=== PATIENT | female | born 1965 ===

== ENCOUNTER 2017-09-11 13:05 | Observation (INO) | payer BC ==
[2017-09-11] MEDS ORDERED: Albuterol-Ipratrop 3 mg / 0.5 (3 ml) UD INH STA ×3 (13:34→13:36)
--- NOTE | 2017-09-11 13:40 | ED PDOC ---
HPI: General Adult Time Seen by Provider: 09/11/17 13:30 Chief Complaint (Nursing): Chest Pain Chief Complaint (Provider): chest pain and coughing History Per: Patient History/Exam Limitations: no limitations Onset/Duration Of Symptoms: Days (4) Have you had recent travel within the past 21 days to any of the following countries: [place], [place], [place] or [place]?: No Current Symptoms Are (Timing): Still Present Severity: Severe Pain Scale Rating Of: 10 Recently: Treated By A Physician (seen by PCP ~ 2 weeks ago) Additional History Per: Patient Additional Complaint(s): pt p/w + 4 days onset of persistent/worsening left sided chest pain/underneath her left breast; pt states movement/coughing worsens the pain; pt states pain at most is 10/10; pt states no radiation of pain down her arms/up her neck; pt states she has been coughing, dry/non-productive over the last 2 weeks, and had seen her PCP, Dr Mora, and was dx with allergic reaction (started on steroids/ nasal spray/inhaler), but without improvement; pt states no fever, + chills, no sweats, + mild sob, no palpitations, no abd pain, no n/v, no numbness/tingling, no urinary/bowel changes, no rashes, no bleeding, no fall/trauma/sick contact, no travel clerk denied other complaints pt is here for further eval. PCP: Dr MORA PMHx: asthma, allergies Family hx: NO acute [place] with immediate family members < 50years old Past Medical History Reviewed: Historical Data, Nursing Documentation, Vital Signs Vital Signs: Last Vital Signs Temp 97.6 F 09/11/17 19:07 Pulse 94 H 09/11/17 19:07 Resp 17 09/11/17 19:07 BP 90/56 L 09/11/17 19:07 Pulse Ox 97 09/11/17 19:07 - Medical History PMH: Anemia, Asthma Denies: HIV, Chronic Kidney Disease - Surgical History Surgical History: - Family History Family History: States: No Known Family Hx - Living Arrangements Living Arrangements: Alone - Social History Current smoker - smoking cessation education provided: No Ex-Smoker (has not smoked in the last 12 months): No Alcohol: None Drugs: Denies - Home Medications Home Medications: Ambulatory Orders Medication Instructions Recorded Albuterol 0.083% [Albuterol 0.083% 2.5 mg INH PRN PRN 09/11/17 Inhal Leilani (2.5 mg/3 ml) UD] Guaifen/Dextromethorphan/PE 1 tab PO DAILY 09/11/17 [Mucinex Fast-Max Congest-Cough] Loratadine/Pseudoephedrine 1 tab PO Q12 09/11/17 [Claritin-D 24 Hour Tablet] - Allergies Allergies/Adverse Reactions: Allergies Allergy/AdvReac Type Severity Reaction Status Date / Time aspirin Allergy RASH Verified 09/11/17 13:11 Review of Systems ROS Statement: Except As Marked, All Systems Reviewed And Found Negative Constitutional: Negative for: Fever, Chills, Sweats, Weakness, Malaise Eyes: Negative for: Pain ENT: Negative for: Ear Pain, Nose Pain, Nose Congestion, Mouth Swelling Cardiovascular: Positive for: Chest Pain Respiratory: Positive for: Cough, Shortness of Breath, SOB with Exertion, Pleuritic Pain Gastrointestinal: Negative for: Nausea, Vomiting, Abdominal Pain, Constipation Genitourinary Female: Negative for: Dysuria, Frequency, Incontinence, Hematuria , Vaginal Discharge Musculoskeletal: Negative for: Neck Pain, Back Pain Skin: Negative for: Rash Neurological: Negative for: Weakness, Altered Mental Status, Headache, Dizziness Psych: Negative for: Anxiety, Depression, Psychosis Physical Exam - Reviewed Nursing Documentation Reviewed: Yes Vital Signs Reviewed: Yes (WNL) - Physical Exam Comments: General: alert/awake, GCS = 15, oriented x 3, resting in bed, uncomfortable, cooperative, interactive; moderate distress due to pain; during exam + cried when left chest wall was palpated Head: NC/AT EYE: PERRLA, EOMI, sclera anicteric, no nystagmus, no photophobia; visual field intact b/l Facial: WNL Oral: uvula/tongue are midline, no exudate/lesions, no drooling/stridor, no dysphonia; intact dentitions NECK: intact ROM, no midline tenderness, no nuchal rigidity, no meningeal signs ; no step off; no crepitus noted Chest: + diffuse b/l wheezing noted, no rales/rhonchi noted, no tachypenia, no accessory muscle use noted; + severe tenderness over the left anterior/lateral chest wall region, NO crepitus, no gross deformities noted Cardiac: +S1, +S2, no m/r/r, no tachycardia Abdominal: +BS, soft/nd/nt, well nourished patient; no masses/rebound/guarding/ rigidity; no baxter's sign, no mcburney's point tenderness Extremities: intact ROM, strength 5/5 grossly intact in all limbs, neurovasc intact b/l; + ambulatory; reflex +2/2; no pitting edema noted b/l BACK: no step off, no midline tenderness, NO crepitus, no gross deformities noted; Intact ROM; no CVAT b/l SKIN: cap refill < 1 sec, no ulcerations, no petechiae, no rashes/lesions NEURO: CNII-XII WNL, no facial asymmetries, no slurr speech, oriented x 3 NIH stroke scale ~ 0 Psych: normal insight, normal affect; follows command with ease - Laboratory Results Result Diagrams: 09/11/17 13:49 09/11/17 13:49 - ECG ECG: Positive for: Interpreted By Me, Viewed By Me Interpretation Of ECG: NSR at 80 bpm, normal axis, no ectopy, no st-t changes, NORMAL EKG; unchanged compare with old ekg 11/2014 O2 Sat by Pulse Oximetry: 98 Pulse Ox Interpretation: Normal - Radiology X-Ray: Viewed By Me, Read By Radiologist - Progress ED Course And Treament: Time: 1503 CXR HISTORY: COMPARISON: 12/08/2014 TECHNIQUE: Chest PA and lateral FINDINGS: LINES AND TUBES: None. LUNG AND PLEURA: The lungs are well inflated and clear. No pleural effusion or pneumothorax. HEART AND MEDIASTINUM: The heart is not enlarged. The hilar and mediastinal contours are within normal limits. SKELETAL STRUCTURES: The bony structures are within normal limits for the patient's age. VISUALIZED UPPER ABDOMEN: Normal. OTHER FINDINGS: None. IMPRESSION: No active pulmonary disease. 3:50p - pt continues to have left chest pain, no improvement from the medications pt is awaiting lab results/CT results Time: 17:46 PROCEDURE: CT Chest with contrast (Pulmonary Angiogram) HISTORY: Left chest pain COMPARISON: Plain radiographs performed earlier the same day. TECHNIQUE: Axial computed tomography images were obtained of the chest in the pulmonary arterial phase of enhancement. Coronal and sagittal reformatted images were created and reviewed. Intravenous contrast dose: 65 mL Visipaque 320 Radiation dose: Total exam DLP = 326.26 mGy-cm. This CT exam was performed using one or more of the following dose reduction techniques: Automated exposure control, adjustment of the mA and/or kV according to patient size, and/or use of iterative reconstruction technique. FINDINGS: PULMONARY ARTERIES: There are no filling defects in the pulmonary arteries to suggest acute pulmonary embolism. AORTA: No acute findings. No thoracic aortic aneurysm. LUNGS: The lungs are clear. There is dependent atelectasis in the lower lobe and subsegmental atelectasis in the lingula. No nodule, mass or pulmonary consolidation. There are no endobronchial lesions. PLEURAL SPACES: No effusion or pneumothorax. HEART: The heart is normal in size. No significant pericardial effusion. LYMPH NODES: No lymphadenopathy. BONES, CHEST WALL: Unremarkable. No fracture or destructive lesion within normal limits for the patient's age. OTHER FINDINGS: There are no calcified gallstones. Both adrenal glands are normal. IMPRESSION: No CT evidence for acute pulmonary embolism. No evidence of consolidation, pleural effusion or pneumothorax. 6:20pm - pt is doing well currently pt states her chest pain is currently at 5-6/10; pt is much more comfortable due to pt's persistent chest pain, left sided, will recommend patient for admission/observation pt is made aware of her medical results agrees with admission/observation paging Dr Murcia, Medical service attending director occupational, no reply, will continue to page 7:05pm - Dr Murcia contacted, made aware, agrees with admission/observation Re-evaluation Time: 16:04 Condition: Unchanged - Physician Consult Information Time Consulting Physican Contacted: 19:05 Physician Contacted: Vincent Murcia Nebulizer Treatments/Peak Flow - Duonebs Number of Bronchodilator Doses given?: 3 - Steroid Treatment Steroid: IV - Clinical Response Comment: CTA b/l, no w/r/r Medical Decision Making Medical Decision Making: Impression: left chest wall pain, + coughing i have consider all the differential diagnosis regarding pt's chief medical complaints/clinical findings, including but are not limited to: left chest wall pain, + coughing; unlikely ACS, unlikely PE A/P: left chest wall pain, + coughing - xray - labs - treatments - steroids - supportive care - observe/reevaluation Disposition - Clinical Impression Clinical Impression: Chest pain with low risk for cardiac etiology, Shortness of breath - Patient ED Disposition Is Patient to be Admitted: Yes Discussed With : Vincent Murcia Doctor Will See Patient In The: Hospital Counseled Patient/Family Regarding: Studies Performed, Diagnosis, Need For Followup, Rx Given - Disposition Disposition Time: 18:33 Condition: STABLE
[2017-09-11] MEDS ORDERED: Morphine 4 MG/ML VIAL ONE (13:48)
[2017-09-11] MEDS ORDERED: Albuterol-Ipratrop 3 mg / 0.5 (3 ml) UD ONE (13:49)
[2017-09-11 13:57] LABS: BASO % 0.5 % (0.0-2.0); EOS # 1.4 K/uL (0.0-0.7); EOS % 15.9 % (0.0-4.0); HEMOGLOBIN 13.5 g/dL (12.0-16.0); LYMPH # 2.2 K/uL (1.0-4.3); LYMPH % 25.6 % (20.0-40.0); MEAN CELL VOLUME 83.1 fl (81.0-99.0); MEAN CORPUSCULAR HEMOGLOBIN 28.4 pg (27.0-31.0); MEAN CORPUSCULAR HGB CONC 34.1 g/dL (33.0-37.0); MEAN PLATELET VOLUME 8.8 fl (7.2-11.7); MONO # 0.5 K/uL (0.0-0.8); MONO % 5.9 % (0.0-10.0); NEUT # 4.5 K/uL (1.8-7.0); NEUT % 52.1 % (50.0-75.0); NRBC % 0.1 % (0.0-0.0); RBC 4.75 Mil/uL (3.80-5.20); WHITE BLOOD COUNT 8.6 K/uL (4.8-10.8)
[2017-09-11 14:01] LABS: ALB/GLOB RATIO 1.1 (1.0-2.1); ALBUMIN 3.9 g/dL (3.5-5.0); ALT/SGPT 32 U/L (9-52); AST/SGOT 26 U/L (14-36); BLOOD UREA NITROGEN 12 mg/dl (7-17); GFR AFRICAN-AMERICAN > 60; GFR NON-AFRICAN AMERICAN > 60; LIPASE 74 U/L (23-300)
[2017-09-11 14:13] LABS: B-TYPE NATRIURETIC PEPTIDE 19.7 pg/ml (0-450)
[2017-09-11 14:57] LABS: SQUAMOUS EPITHIAL 10 /hpf (0-5); URINE BACTERIA RARE (<OCC); URINE BILIRUBIN NEGATIVE (NEGATIVE); URINE BLOOD NEGATIVE (NEGATIVE); URINE CLARITY CLOUDY (Clear); URINE COLOR YELLOW (YELLOW); URINE GLUCOSE (UA) NEG (Normal); URINE LEUKOCYTE ESTERASE SMALL Leu/uL (Negative); URINE PROTEIN 30 mg/dL (NEGATIVE)
--- NOTE | 2017-09-11 15:05 | RAD ---
HISTORY: COMPARISON: 12/08/2014 TECHNIQUE: Chest PA and lateral FINDINGS: LINES AND TUBES: None. LUNG AND PLEURA: The lungs are well inflated and clear. No pleural effusion or pneumothorax. HEART AND MEDIASTINUM: The heart is not enlarged. The hilar and mediastinal contours are within normal limits. SKELETAL STRUCTURES: The bony structures are within normal limits for the patient's age. VISUALIZED UPPER ABDOMEN: Normal. OTHER FINDINGS: None. IMPRESSION: No active pulmonary disease.
[2017-09-11] MEDS ORDERED: HYDROmorphone 0.5 mg/0.5 ml ISec IVP ONE (16:02)
[2017-09-11] MEDS ORDERED: Iodixanol 320 MG/ML 100 ML BOTTLE IV ONE (16:48)
[2017-09-11] MEDS ORDERED: Sodium Chloride 0.9% 50 ML IV ONE (16:48)
--- NOTE | 2017-09-11 17:48 | CT ---
PROCEDURE: CT Chest with contrast (Pulmonary Angiogram) HISTORY: Left chest pain COMPARISON: Plain radiographs performed earlier the same day. TECHNIQUE: Axial computed tomography images were obtained of the chest in the pulmonary arterial phase of enhancement. Coronal and sagittal reformatted images were created and reviewed. Intravenous contrast dose: 65 mL Visipaque 320 Radiation dose: Total exam DLP = 326.26 mGy-cm. This CT exam was performed using one or more of the following dose reduction techniques: Automated exposure control, adjustment of the mA and/or kV according to patient size, and/or use of iterative reconstruction technique. FINDINGS: PULMONARY ARTERIES: There are no filling defects in the pulmonary arteries to suggest acute pulmonary embolism. AORTA: No acute findings. No thoracic aortic aneurysm. LUNGS: The lungs are clear. There is dependent atelectasis in the lower lobe and subsegmental atelectasis in the lingula. No nodule, mass or pulmonary consolidation. There are no endobronchial lesions. PLEURAL SPACES: No effusion or pneumothorax. HEART: The heart is normal in size. No significant pericardial effusion. LYMPH NODES: No lymphadenopathy. BONES, CHEST WALL: Unremarkable. No fracture or destructive lesion within normal limits for the patient's age. OTHER FINDINGS: There are no calcified gallstones. Both adrenal glands are normal. IMPRESSION: No CT evidence for acute pulmonary embolism. No evidence of consolidation, pleural effusion or pneumothorax.
[2017-09-11] MEDS ORDERED: HYDROmorphone 0.5 mg/0.5 ml ISec ONE (19:00)
[2017-09-12 05:38] LABS: HEMOGLOBIN 12.1 g/dL (12.0-16.0); MEAN CORPUSCULAR HEMOGLOBIN 27.5 pg (27.0-31.0); MEAN CORPUSCULAR HGB CONC 32.3 g/dL (33.0-37.0); RBC 4.39 Mil/uL (3.80-5.20); RED CELL DISTRIBUTION WIDTH 15.3 % (11.5-14.5); WHITE BLOOD COUNT 8.3 K/uL (4.8-10.8)
[2017-09-12 05:45] LABS: BLOOD UREA NITROGEN 13 mg/dl (7-17); CALCIUM 8.7 mg/dL (8.4-10.2); GFR AFRICAN-AMERICAN > 60; GFR NON-AFRICAN AMERICAN > 60; HDL CHOLESTEROL 46 MG/DL (30-70)
[2017-09-12 05:55] LABS: LDL CHOLESTEROL 80 mg/dL (0-129)
[2017-09-12] MEDS ORDERED: Pneumococcal 23-Valent Vaccine IM ONE (06:30)
--- NOTE | 2017-09-12 08:37 | CARD ---
APPROVED REPORT EKG Measurement Heart [id number] <Conclusion> Normal sinus rhythm Normal ECG
--- NOTE | 2017-09-12 08:42 | CARD ---
APPROVED REPORT EKG Measurement Heart [id number] [place] 130P8 [id number] <Conclusion> Normal sinus rhythm Normal ECG
[2017-09-12] MEDS: Enoxaparin 40 mg Syringe SC SCH (09:38)
[2017-09-12] MEDS: Albuterol-Ipratrop 3 mg / 0.5 (3 ml) UD INH SCH ×5 (09:42→18:59)
[2017-09-12] MEDS ORDERED: Albuterol-Ipratrop 3 mg / 0.5 (3 ml) UD INH SCH (12:00)
--- NOTE | 2017-09-12 12:19 | CARD ---
APPROVED REPORT EXAM: Two-dimensional and M-mode echocardiogram with Doppler and color Doppler. Other Information Quality : AverageRhythm : NSR INDICATION Chest Pain 2D DIMENSIONS IVSd1.03 (0.7-1.1cm)LVDd4.33 (3.9-5.9cm) LVOT Diameter1.80 (1.8-2.4cm)PWd1.01 (0.7-1.1cm) IVSs1.27 (0.8-1.2cm)LVDs2.60 (2.5-4.0cm) FS (%) 40.0 %PWs1.15 (0.8-1.2cm) M-Mode DIMENSIONS Left Atrium (MM)3.24 (2.5-4.0cm)IVSd0.85 (0.7-1.1cm) Aortic Root3.04 (2.2-3.7cm)LVDd4.14 (4.0-5.6cm) Aortic Cusp Exc.1.90 (1.5-2.0cm)PWd1.03 (0.7-1.1cm) IVSs0.98 cmFS (%) 39 % LVDs2.55 (2.0-3.8cm)PWs1.44 cm Mitral Valve MV E Bfemknqc36.4cm/sMV DECEL FFAF292liER A Gzunfuva40.0cm/s MV HNE53waO/A ratio1.1MVA (PHT)4.26cm2 TDI Lateral E' Peak V8.96cm/sMedial E' Peak V7.50cm/sE/Lateral E'4.8 E/Medial E'5.8 Pulmonary Valve PV Peak Gvrmyxze02.9cm/s Tricuspid Valve TR Peak Ftlqbtuv563hp/sRAP [id number] Peak Gr.14mmHg [id number] LEFT VENTRICLE The left ventricle is normal in size. There is normal left ventricular wall thickness. The left ventricular function is normal. The left ventricular ejection fraction is - 65%. There is normal LV segmental wall motion. The left ventricular diastolic function is normal. No left ventricle thrombus noted on this study. There is no ventricular septal defect visualized. There is no left ventricular aneurysm. There is no mass noted in the left ventricle. RIGHT VENTRICLE The right ventricle is normal size. There is normal right ventricular wall thickness. The right ventricular systolic function is normal. ATRIA The left atrium size is normal. There is no thrombus suspected in the left atrium. The right atrium size is normal. The interatrial septum is intact with no evidence for an atrial septal defect. AORTIC VALVE The aortic valve is normal in structure. No aortic regurgitation is present. There is no aortic valvular stenosis. MITRAL VALVE The mitral valve is normal in structure. There is no evidence of mitral valve prolapse. There is no mitral valve stenosis. Mitral regurgitation is trace. TRICUSPID VALVE The tricuspid valve is normal in structure. There is trace tricuspid regurgitation. Right ventricular systolic pressure is estimated at 23 mmHg. There is no tricuspid valve prolapse or vegetation. There is no tricuspid valve stenosis. PULMONIC VALVE The pulmonic valve is not well visualized. There is no pulmonic valvular regurgitation. GREAT VESSELS The aortic root is normal in size. The IVC was not visualized. PERICARDIAL EFFUSION The pericardium appears normal. There is no pleural effusion. <Conclusion> The left ventricle is normal in size and wall thickness. The left ventricular function is normal. The left ventricular ejection fraction is - 65%. The left atrium, right ventricle and right atrium are normal in size. The mitral, aortic and tricuspid valves are normal. There is trace mitral regurgitation and trace tricuspid regurgitation.
[2017-09-12] MEDS ORDERED: Lactulose 10 gm/15 ml Syrup PO PRN (13:50)
--- NOTE | 2017-09-12 22:05 | CP.PCM.HP ---
History of Present Illness - History of Present Illness History of Present Illness: CC: Chest Pain History of Present Illness: A 51yoF with no PMH except Arthritis whp presesnted with 4 days onset of persistent/worsening left sided chest pain/underneath her left breast; pt states movement/coughing worsens the pain; pt states pain at most is 10/10; pt states no radiation of pain down her arms/up her neck; pt states she has been coughing, dry/non-productive over the last 2 weeks, and had seen her PCP, Dr Mora, and was dx with allergic reaction (started on steroids/nasal spray/inhaler ), but without improvement; pt states no fever, + chills, no sweats, + mild sob , no palpitations, no abd pain, no n/v, no numbness/tingling, no urinary/bowel changes, no rashes, no bleeding, no fall/trauma/sick contact, no auto club travel counselor denied other complaints. Present on Admission - Present on Admission Any Indicators Present on Admission: No Review of Systems - Review of Systems All systems: reviewed and no additional remarkable complaints except Past Patient History - Past Medical History & Family History Past Medical History?: Yes Past Family History: Reviewed and not pertinent - Past Social History Smoking Status: Never Smoked Alcohol: None Drugs: Denies - CARDIAC Hx Cardiac Disorders: No - PULMONARY Hx Respiratory Disorders: Yes Hx Asthma: Yes Other/Comment: Seasonal allergies - NEUROLOGICAL Hx Neurological Disorder: No - HEENT Hx HEENT Problems: No - RENAL Hx Chronic Kidney Disease: No - ENDOCRINE/METABOLIC Hx Endocrine Disorders: No - HEMATOLOGICAL/ONCOLOGICAL Hx Blood Disorders: Yes Hx Anemia: Yes Hx Human Immunodeficiency Virus (HIV): No - INTEGUMENTARY Hx Dermatological Problems: No - MUSCULOSKELETAL/RHEUMATOLOGICAL Hx Musculoskeletal Disorders: Yes Hx Falls: No Hx Herniated Disk: Yes - GASTROINTESTINAL Hx Gastrointestinal Disorders: Yes Other/Comment: CONSTIPATION - GENITOURINARY/GYNECOLOGICAL Hx Genitourinary Disorders: No - PSYCHIATRIC Hx Psychophysiologic Disorder: No Hx Substance Use: No - SURGICAL HISTORY Hx Surgeries: Yes Hx Section: Yes (X2) Other/Comment: 2009 RIGHT 4TH FINGER OPERATION - ANESTHESIA Hx Anesthesia: Yes Hx Anesthesia Reactions: No Hx Malignant Hyperthermia: No Meds Allergies/Adverse Reactions: Allergies Allergy/AdvReac Type Severity Reaction Status Date / Time aspirin Allergy RASH Verified 09/11/17 13:11 Physical Exam - Constitutional Appears: Well - Head Exam Head Exam: ATRAUMATIC, NORMAL INSPECTION, NORMOCEPHALIC - Eye Exam Eye Exam: EOMI, Normal appearance, PERRL Pupil Exam: NORMAL ACCOMODATION, PERRL - ENT Exam ENT Exam: Mucous Membranes Moist, Normal Exam - Neck Exam Neck exam: Positive for: Normal Inspection - Respiratory Exam Respiratory Exam: Clear to Auscultation Bilateral, NORMAL BREATHING PATTERN - Cardiovascular Exam Cardiovascular Exam: REGULAR RHYTHM, +S1, +S2 - GI/Abdominal Exam GI & Abdominal Exam: Normal Bowel Sounds, Soft, Tenderness (Left upper Quadrant) - Rectal Exam Rectal Exam: NORMAL INSPECTION - Exam Exam: Circumcision, NORMAL INSPECTION External exam: NORMAL EXTERNAL EXAM Speculum exam: NORMAL SPECULUM EXAM Bimanual exam: NORMAL BIMANUAL EXAM - Extremities Exam Extremities exam: Positive for: normal inspection - Back Exam Back exam: NORMAL INSPECTION - Neurological Exam Neurological exam: Alert, CN II-XII Intact, Normal Gait, Oriented x3, Reflexes Normal - Psychiatric Exam Psychiatric exam: Normal Affect, Normal Mood - Skin Skin Exam: Dry, Intact, Normal Color, Warm Results - Vital Signs Recent Vital Signs: Last Vital Signs Temp 97.8 F 09/12/17 15:52 Pulse 79 09/12/17 15:52 Resp 17 09/12/17 15:52 BP 99/65 L 09/12/17 15:52 Pulse Ox 96 09/12/17 15:52 - Labs Result Diagrams: 09/12/17 04:20 09/12/17 04:20 Labs: Laboratory Results - last 24 hr 09/11/17 09/12/17 09/12/17 23:30 04:20 04:20 WBC 8.3 RBC 4.39 Hgb 12.1 Hct 37.3 MCV 85.0 MCH 27.5 MCHC 32.3 L RDW 15.3 H Plt Count 238 Sodium 139 Potassium 4.1 Chloride 102 Carbon Dioxide 25 Anion Gap 16 BUN 13 Creatinine 0.5 L Est GFR ( Amer) > 60 Est GFR (Non-Af Amer) > 60 Random Glucose 120 H Calcium 8.7 Troponin I < 0.0120 Triglycerides 46 Cholesterol 156 LDL Cholesterol Direct 80 HDL Cholesterol 46 TSH 3rd Generation 0.28 L 09/12/17 08:49 WBC RBC Hgb Hct MCV MCH MCHC RDW Plt Count Sodium Potassium Chloride Carbon Dioxide Anion Gap BUN Creatinine Est GFR ( Amer) Est GFR (Non-Af Amer) Random Glucose Calcium Troponin I < 0.0120 Triglycerides Cholesterol LDL Cholesterol Direct HDL Cholesterol TSH 3rd Generation - Imaging and Cardiology CT scan - chest Status: Report reviewed by me Additional comment: CT Chest with contrast (Pulmonary Angiogram) HISTORY: Left chest pain COMPARISON: Plain radiographs performed earlier the same day. TECHNIQUE: Axial computed tomography images were obtained of the chest in the pulmonary arterial phase of enhancement. Coronal and sagittal reformatted images were created and reviewed. Intravenous contrast dose: 65 mL Visipaque 320 Radiation dose: Total exam DLP = 326.26 mGy-cm. This CT exam was performed using one or more of the following dose reduction techniques: Automated exposure control, adjustment of the mA and/or kV according to patient size, and/or use of iterative reconstruction technique. FINDINGS: PULMONARY ARTERIES: There are no filling defects in the pulmonary arteries to suggest acute pulmonary embolism. AORTA: No acute findings. No thoracic aortic aneurysm. LUNGS: The lungs are clear. There is dependent atelectasis in the lower lobe and subsegmental atelectasis in the lingula. No nodule, mass or pulmonary consolidation. There are no endobronchial lesions. PLEURAL SPACES: No effusion or pneumothorax. HEART: The heart is normal in size. No significant pericardial effusion. LYMPH NODES: No lymphadenopathy. BONES, CHEST WALL: Unremarkable. No fracture or destructive lesion within normal limits for the patient's age. OTHER FINDINGS: There are no calcified gallstones. Both adrenal glands are normal. IMPRESSION: No CT evidence for acute pulmonary embolism. No evidence of consolidation, pleural effusion or pneumothorax. Assessment & Plan (1) Chest pain Assessment and Plan: ACs Ruled out No Wall Motion abnormality Status: Acute Priority: Medium (2) Arthritis Assessment and Plan: Sed Rate/CRP SARAH, RF Uric Acid Status: Acute Priority: Medium (3) Abdominal pain Assessment and Plan: Normal Lipase U/S abdomen Complete Status: Acute Priority: Low
[2017-09-13 00:13] VITALS: RESP 18
[2017-09-13 05:55] LABS: BASO % 0.6 % (0.0-2.0); EOS # 0.3 K/uL (0.0-0.7); EOS % 3.7 % (0.0-4.0); HEMOGLOBIN 11.9 g/dL (12.0-16.0); LYMPH % 38.8 % (20.0-40.0); MEAN CELL VOLUME 85.3 fl (81.0-99.0); MEAN CORPUSCULAR HEMOGLOBIN 28.3 pg (27.0-31.0); MEAN CORPUSCULAR HGB CONC 33.2 g/dL (33.0-37.0); MEAN PLATELET VOLUME 8.6 fl (7.2-11.7); MONO # 0.5 K/uL (0.0-0.8); MONO % 6.2 % (0.0-10.0); NEUT # 3.9 K/uL (1.8-7.0); NEUT % 50.7 % (50.0-75.0); RBC 4.21 Mil/uL (3.80-5.20); RED CELL DISTRIBUTION WIDTH 15.1 % (11.5-14.5); WHITE BLOOD COUNT 7.7 K/uL (4.8-10.8)
[2017-09-13 06:15] LABS: ALB/GLOB RATIO 1.1 (1.0-2.1); ALBUMIN 3.5 g/dL (3.5-5.0); ALT/SGPT 30 U/L (9-52); AST/SGOT 19 U/L (14-36); BLOOD UREA NITROGEN 18 mg/dl (7-17); CALCIUM 8.2 mg/dL (8.4-10.2); GFR AFRICAN-AMERICAN > 60; GFR NON-AFRICAN AMERICAN > 60; URIC ACID 3.8 mg/Dl (2.2-7.5)
[2017-09-13] MEDS: Albuterol-Ipratrop 3 mg / 0.5 (3 ml) UD INH SCH ×3 (08:16→15:54)
[2017-09-13] MEDS: Enoxaparin 40 mg Syringe SC SCH (08:50)
--- NOTE | 2017-09-13 11:11 | US ---
HISTORY: Left upper quadrant pain. COMPARISON: None. TECHNIQUE: Standard protocol for this study/examination. FINDINGS: LIVER: Measures 13.5 cm in length. Normal echogenicity of the liver parenchyma. No mass. No intrahepatic bile duct dilatation. GALLBLADDER: Unremarkable. No gallstones. COMMON BILE DUCT: Measures 3.5 mm. No stones. No dilatation. PANCREAS: Obscured by overlying bowel gas. Non diagnostic assessment of the pancreas RIGHT KIDNEY: Measures 4.3 x 10.4 cm in length. Normal echogenicity. No calculus, mass, or hydronephrosis. AORTA: No aneurysmal dilatation. IVC: Unremarkable. OTHER FINDINGS: None . IMPRESSION: No significant or acute findings to account for/ related to the clinical presentation. Limitations of the current examination: Nondiagnostic assessment of the pancreas.
[2017-09-13 11:56] VITALS: BP 104/67; PULSE 79; TEMP 97.8; O2SAT 96
[2017-09-13] MEDS ORDERED: Potassium Chloride 20 mEq ER Tab PO ONE (13:30)
--- NOTE | 2017-09-13 23:12 | CP.PCM.DIS ---
Provider - Provider Date of Admission: 09/11/17 18:52 Attending physician: Vincent Murcia MD Time Spent in preparation of Discharge (in minutes): 25 Diagnosis - Discharge Diagnosis (1) Chest pain Status: Acute Priority: Medium (2) Arthritis Status: Acute Priority: Medium (3) Abdominal pain Status: Acute Priority: Low (4) Back pain without radiculopathy Status: Acute Hospital Course - Lab Results Lab Results: Most Recent Lab Values WBC 7.7 K/uL (4.8-10.8) 09/13/17 04:25 RBC 4.21 Mil/uL (3.80-5.20) 09/13/17 04:25 Hgb 11.9 g/dL (12.0-16.0) L 09/13/17 04:25 Hct 35.9 % (34.0-47.0) 09/13/17 04:25 MCV 85.3 fl (81.0-99.0) 09/13/17 04:25 MCH 28.3 pg (27.0-31.0) 09/13/17 04:25 MCHC 33.2 g/dL (33.0-37.0) 09/13/17 04:25 RDW 15.1 % (11.5-14.5) H 09/13/17 04:25 Plt Count 224 K/uL (130-400) 09/13/17 04:25 MPV 8.6 fl (7.2-11.7) 09/13/17 04:25 Neut % (Auto) 50.7 % (50.0-75.0) 09/13/17 04:25 Lymph % (Auto) 38.8 % (20.0-40.0) 09/13/17 04:25 [place] % (Auto) 6.2 % (0.0-10.0) 09/13/17 04:25 Eos % (Auto) 3.7 % (0.0-4.0) 09/13/17 04:25 Baso % (Auto) 0.6 % (0.0-2.0) 09/13/17 04:25 Neut # (Auto) 3.9 K/uL (1.8-7.0) 09/13/17 04:25 Lymph # (Auto) 3.0 K/uL (1.0-4.3) 09/13/17 04:25 [place] # (Auto) 0.5 K/uL (0.0-0.8) 09/13/17 04:25 Eos # (Auto) 0.3 K/uL (0.0-0.7) 09/13/17 04:25 Baso # (Auto) 0.0 K/uL (0.0-0.2) 09/13/17 04:25 ESR 28 mm/hr (0-20) H 09/13/17 04:25 Sodium 141 mmol/l (132-148) 09/13/17 04:25 Potassium 3.5 MMOL/L (3.6-5.0) L 09/13/17 04:25 Chloride 104 mmol/L (98-107) 09/13/17 04:25 Carbon Dioxide 24 mmol/L (22-30) 09/13/17 04:25 Anion Gap 17 (10-20) 09/13/17 04:25 BUN 18 mg/dl (7-17) H 09/13/17 04:25 Creatinine 0.5 mg/dl (0.7-1.2) L 09/13/17 04:25 Est GFR ( Amer) > 60 09/13/17 04:25 Est GFR (Non-Af Amer) > 60 09/13/17 04:25 Random Glucose 84 mg/dL (65-105) 09/13/17 04:25 Uric Acid 3.8 mg/Dl (2.2-7.5) 09/13/17 04:25 Calcium 8.2 mg/dL (8.4-10.2) L 09/13/17 04:25 Total Bilirubin 0.2 mg/dl (0.2-1.3) 09/13/17 04:25 AST 19 U/L (14-36) 09/13/17 04:25 ALT 30 U/L (9-52) 09/13/17 04:25 Alkaline Phosphatase 65 U/L (38-126) 09/13/17 04:25 Troponin I < 0.0120 ng/mL (0.00-0.120) 09/12/17 08:49 NT-Pro-B Natriuret Pep 19.7 pg/ml (0-450) 09/11/17 13:49 Total Protein 6.6 G/DL (6.3-8.2) 09/13/17 04:25 Albumin 3.5 g/dL (3.5-5.0) 09/13/17 04:25 Globulin 3.2 gm/dL (2.2-3.9) 09/13/17 04:25 Albumin/Globulin Ratio 1.1 (1.0-2.1) 09/13/17 04:25 Triglycerides 46 mg/DL (0-149) 09/12/17 04:20 Cholesterol 156 mg/dL (0-199) 09/12/17 04:20 LDL Cholesterol Direct 80 mg/dL (0-129) 09/12/17 04:20 HDL Cholesterol 46 MG/DL (30-70) 09/12/17 04:20 Lipase 74 U/L (23-300) 09/11/17 13:49 TSH 3rd Generation 0.28 mIU/ML (0.46-4.68) L 09/12/17 04:20 Urine Color Yellow (YELLOW) 09/11/17 14:42 Urine Clarity Cloudy (Clear) 09/11/17 14:42 Urine pH 7.0 (5.0-8.0) 09/11/17 14:42 Ur Specific [place] 1.027 (1.003-1.030) 09/11/17 14:42 Urine Protein 30 mg/dL (NEGATIVE) 09/11/17 14:42 Urine Glucose (UA) Neg mg/dL (Normal) 09/11/17 14:42 Urine Ketones Negative mg/dL (NEGATIVE) 09/11/17 14:42 Urine Blood Negative (NEGATIVE) 09/11/17 14:42 Urine Nitrate Negative (NEGATIVE) 09/11/17 14:42 Urine Bilirubin Negative (NEGATIVE) 09/11/17 14:42 Urine Urobilinogen 2.0 mg/dL (0.2-1.0) H 09/11/17 14:42 Ur Leukocyte Esterase Small [place]/uL (Negative) 09/11/17 14:42 Urine RBC (Auto) 3 /hpf (0-3) 09/11/17 14:42 Urine Microscopic WBC 7 /hpf (0-5) H 09/11/17 14:42 Ur Squamous Epith Cells 10 /hpf (0-5) H 09/11/17 14:42 Urine Bacteria Rare (<OCC) 09/11/17 14:42 Discharge Exam - Head Exam Head Exam: ATRAUMATIC, NORMAL INSPECTION, NORMOCEPHALIC Discharge Plan - Discharge Medications Prescriptions: Pantoprazole [Protonix] 40 mg PO DAILY #30 ect - Follow Up Plan Condition: STABLE Disposition: HOME/ ROUTINE Instructions: Acid Reflux (Gastroesophageal Reflux Disease), Adult (DC), Chest Pain (DC) Additional Instructions: follow up with in 1 week Referrals: Vincent Murcia MD [Staff Provider] -
== END 2017-09-13 15:30 | disposition home or self-care (01) ==
LOC: H.ER 13:05 → H.ERHOLD 18:52 → H.TEL 22:59
PROVIDERS: ADMIT Internal Medicine; ATTEND Internal Medicine
DX: R07.89 Other chest pain (principal); M19.90 Unspecified osteoarthritis, unspecified site; D64.9 Anemia, unspecified; M54.9 Dorsalgia, unspecified; R10.9 Unspecified abdominal pain; J45.909 Unspecified asthma, uncomplicated; K59.00 Constipation, unspecified
CPT/HCPCS: 36415; 71046; 71275; 76705; 80048; 80053; 80061; 81003; 81025; 83520; 83690; 83880; 84443; 84484; 84550; 85025; 85027; 85651; 86038; 86140; 93005; 93306; 94640; 96374; 99285; G0378; J1170; J1650; J1885; J2270; J2405; J2930; Q9967